=== PATIENT | male | born 1950 | race Caucasian/White ===

== ENCOUNTER 2016-11-24 23:59 | Inpatient (IN) | payer BC, MEDICARE ==
--- NOTE | ~2016-11-24 | CT16 ---
[facility] A Service of [facility] & [facility] RADIOLOGY TEXT RESULTS PATIENT: SUDHAKAR MENDEZ LOCATION: C2A 241- : 49 UNIT #: [id number] AGE: [address]: Sarah Zambrano MD SEX: M ORDER DR: [id number] [facility] [address] [facility]. [place], [place] [address] [id number] I MR#: [id number] Acc #: [id number] NAME: SUDHAKAR MENDEZ : 1950 SEX: M STUDY DATE/TIME: 11/25/2016 16:11 UNIT: C2 ROOM: 241 STUDY DESCRIPTION: CT Angio Chest for PE Attending Physician: Sarah Zambrano M.D. Ordering Physician: Juan Mccullough M.D. Primary Care Physician: Safia Covarrubias M.D. MEDICAL IMAGING REPORT This report is preliminary unless electronic signature is present EXAM CT angiogram chest with IV contrast HISTORY Cough and hemoptysis for 3 months. FINDINGS IV contrast-enhanced CT angiogram of the chest was performed with 3-D reconstructions. This CT exam was performed with one or more of the following radiation dose reduction techniques: Automatic exposure control, adjustment of mA and/or kV according to patient size, and iterative reconstruction. There are moderately extensive multifocal, partly calcified pleural plaques. Moderate subsegmental atelectasis in the inferior right middle lobe and posterior right lower lobe, and mild bronchiectasis in the right lower lobe. Calcified pleural plaques extend over the posterior hemidiaphragms bilaterally. 1.1 cm x 1.4 cm oval nodular density in the anteromedial left upper lobe, with adjacent linear stranding, could be secondary to focal fibrotic scarring. Comparison to older chest CTs, if available, is recommended. No prior chest CTs are available at this time. If no prior studies are available, either short-term followup CT chest in [address] should be considered for further evaluation. Normal caliber thoracic aorta. No evidence of pulmonary embolus. No adenopathy. Images of the upper abdomen demonstrate morphologic changes of cirrhosis with generalized hepatic atrophy and nodular hepatic contour, and splenomegaly measuring at least 17 cm in AP dimension. Moderate upper abdominal ascites. IMPRESSION 1. No pulmonary embolus. 2. Extensive calcified pleural plaques bilaterally. [facility]. [facility] A Service of [facility] RADIOLOGY TEXT RESULTS PATIENT: SUDHAKAR MENDEZ LOCATION: [facility] 241-01 : 49 UNIT #: [id number] AGE: [address]: Sarah Zambrano MD SEX: M ORDER DR: 3. There is an oval indeterminate nodule in the anteromedial left upper lobe measuring 1.1 cm x 1.4 cm. Comparison to prior chest CTs, if available, is recommended. Otherwise, followup chest CT in 3 months or further characterization with PET CT is recommended. 4. Moderately dense atelectasis in the right middle lobe inferiorly and in the posterior right lower lobe. 5. Images of the upper abdomen demonstrate cirrhosis with portal venous hypertension, splenomegaly and moderate upper abdominal ascites. Dictated by... Adeel Good M.D. THIS IS AN ELECTRONICALLY VERIFIED REPORT Adeel Good M.D. at 11/25/2016 11:36 PM DFL/nomi TD: 11/25/2016 22:05 JOB #: [id number] MEDICAL IMAGING REPORT Page 1 of 1 COPY
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
--- NOTE | ~2016-11-24 | DS ---
Unit #: [id number] #: [id number] Patient: SUDHAKAR LY [id number] [address] [place], [place] [address] [id number] I MR#: [id number] NAME: SUDHAKAR LY ROOM: 241 Age: 66 Sex: M Admission Date: 11/25/2016 : 1950 Discharge Date: 11/26/2016 Attending Physician: Sarah Zambrano M.D. Primary Care Physician: Safia Covarrubias M.D. DISCHARGE SUMMARY FINAL DIAGNOSES 1. Pneumonia. 2. Hemoptysis. 3. Ascites. 4. Cirrhosis. 5. Hepatitis C. 6. Alcohol abuse. DISCHARGE MEDICATIONS Levaquin 750 mg p.o. daily for 7 days., spironolactone 50 mg daily, Lasix 20 mg daily, Xanax 0.5 mg at bedtime. CONSULTATION DURING HOSPITALIZATION 1. Dr. Mccullough from Pulmonary Services. 2. Dr. Hand from [facility]. HOSPITAL COURSE Mr. Basil Ly is a 66-year-old male, who was admitted to the hospital with chest tightness, cough, and hemoptysis. The patient was diagnosed with community-acquired pneumonia. Dr. Mccullough was consulted. The patient was started on IV Levaquin. He is doing very well. CT scan of the chest was done, which does show extensive calcified pleural plaque bilaterally and oval nodule in the left upper lobe 1.1 cm x 1.4 cm. The patient will need a repeat CT scan done in 8 to 10 weeks or so. Characterization with PET-CT might be needed. The patient also has cirrhosis, hepatitis C, and portal venous hypertension. Dr. Hand was consulted. The patient has been started on Lasix and spironolactone. The patient will need to follow up with Dr. Hand to complete the workup for chronic liver disease. DISCHARGE INSTRUCTIONS 1. Discharge the patient to home in stable condition. 2. Medications as per med rec. 3. Follow up Dr. Mccullough's nurse practitioner in 2 to [address] scan of the chest to be done in 8 to 10 weeks. 5. Follow up primary care provider in [address] week[address] Follow up [address] Hand in 1 to 2 weeks at near clinic. 7. Prescription has been written. 8. Plan of care has been discussed with the patient. Dictated by... Unit #: [id number] #: [id number] Patient: SUDHAKAR LY M.D. KN/modl TD: 11/27/2016 02:10 JOB #: [id number] DISCHARGE SUMMARY Page 1 of 1 X Sarah Zambrano MD X DISCHARGE SUMMARY
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
--- NOTE | ~2016-11-24 | CR63 ---
[facility] A Service of [facility] & [facility] RADIOLOGY TEXT RESULTS PATIENT: SUDHAKAR MENDEZ LOCATION: C2A 241-01 : [birth year] UNIT #: [id number] AGE: [address]: Sarah Zambrano MD SEX: M ORDER DR: [id number] [facility] [address] [facility]. [place], [place] [address] [id number] I MR#: [id number] Acc #: [id number] NAME: SUDHAKAR MENDEZ : 1950 SEX: M STUDY DATE/TIME: 11/25/2016 0:37 UNIT: C2 ROOM: 241 STUDY DESCRIPTION: CR Chest 2 View Attending Physician: Sarah Zambrano M.D. Ordering Physician: Davion Ramírez M.D. Primary Care Physician: Safia Covarrubias M.D. MEDICAL IMAGING REPORT This report is preliminary unless electronic signature is present EXAM Two-view chest 11/25/2016 INDICATIONS 66-year-old male with cough, congestion for two weeks. TECHNIQUE Two-view chest compared with 10/13/2016. FINDINGS Lung volumes are low. Cardiac silhouette is within normal limits for technique. Vascularity unremarkable. Left lung appears clear. There is increasing opacity in the right lung base suspicious for pneumonia or at least dense atelectasis. No pneumothorax. No distinct effusion. IMPRESSION 1. Worsening atelectasis or pneumonia in the right lung base. No pneumothorax or significant effusion. 2. Chronic-appearing volume loss on the right and old healed granulomatous disease. Dictated by... Mk Luciano M.D. THIS IS AN ELECTRONICALLY VERIFIED REPORT Mk Luciano M.D. at 11/25/2016 9:57 PM Adrien TD: 11/25/2016 09:52 JOB #: [id number] MEDICAL IMAGING REPORT Page 1 of 1 COPY
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
--- NOTE | ~2016-11-24 | EKG ---
PATIENT: SUDHAKAR MENDEZ UNIT #: [id number] Ventricular Rate: 90 BPM Atrial Rate: 90 BPM P-R Interval: 152 ms QRS Duration: 84 ms Q-T Interval: 362 ms QTC Calculation(Bezet): 442 ms P [place]: 39 degrees Calculated R [place]: 7 degrees Calculated T [place]: 19 degrees Diagnosis Line: Normal sinus rhythm Diagnosis Line: Normal ECG Diagnosis Line: No previous ECGs available Diagnosis Line: Confirmed by HERLINDA PLEITEZ MD ([id number]) on 11/26/2016 Diagnosis Line: 9:11:58 PM INTERPRETING MD: MAIK MURPHY
[~2016-11-24 23:59] MED LIST: ALPRAZOLAM PO
[2016-11-25 00:48] LABS: POC - CKMB 1.1 ng/mL (0.0-7.9); POC - TROPONIN <0.05 ng/mL (<=0.05)
[2016-11-25 00:52] LABS: BASOPHIL% 0.7 % (0-2.5); EOSINOPHIL# 0.1 X10e3 (0-0.7); EOSINOPHIL% 1.6 % (0.0-7.0); HEMATOCRIT 41.8 % (38.0-50.0); LYMPHOCYTE# 0.6 X10e3 (1.0-3.5); LYMPHOCYTE% 18.9 % (17.0-45.0); MEAN CELL VOLUME 93.4 FL (83-96); MEAN CORPUSCULAR HEMOGLOBIN 31.3 PG (28-34); MEAN CORPUSCULAR HGB CONC 33.5 g/dL (30-36); MEAN PLATELET VOLUME 9.7 FL (6.5-11.5); MONOCYTE# 0.3 X10e3 (0-1.0); MONOCYTE% 9.4 % (3.0-12.0); NEUTROPHIL# 2.4 X10e3 (1.5-7.1); NEUTROPHIL% 69.4 % (40-75); PLATELET COUNT 58 X10e3 (140-420); RED BLOOD COUNT 4.47 X10e (3.90-5.60); RED CELL DISTRIBUTION WIDTH 15.7 % (11.0-15.5); WHITE BLOOD COUNT 3.4 X10e3 (4.0-10.5)
[2016-11-25 01:16] LABS: BILIRUBIN, DIRECT 1.4 mg/dL (0.0-0.2); BILIRUBIN,INDIRECT 2.8 mg/dL (0.0-0.9); BILIRUBIN,TOTAL 4.2 mg/dL (0.2-2.0); BUN/CREATININE RATIO 7.5; CALCIUM SERUM 8.5 mg/dL (8.4-10.2); CREATININE SERUM 0.8 mg/dL (0.6-1.4); GLOM FILT RATE Estimated 92.5 mL/min (>60)
[2016-11-25 01:31] LABS: DIFF IND YES
[2016-11-25 01:46] LABS: ANISOCYTOSIS SL; PLATELET ESTIMATE DECREASED (NORMAL)
[2016-11-25 02:27] LABS: POC - CKMB <1.0 ng/mL (0.0-7.9); POC - TROPONIN <0.05 ng/mL (<=0.05)
[2016-11-26 06:33] LABS: ALBUMIN SERUM 2.5 g/dL (3.5-5.0); BUN/CREATININE RATIO 6.25; CALCIUM SERUM 8.1 mg/dL (8.4-10.2); CREATININE SERUM 0.8 mg/dL (0.6-1.4); GLOM FILT RATE Estimated 92.5 mL/min (>60); POTASSIUM 3.8 mmol/L (3.5-5.1)
[2016-11-26] MEDS ORDERED: APAP325 M2 PO (12:48)
[2016-11-26] MEDS ORDERED: LASIX20 MG PO (12:49)
[2016-11-26] MEDS ORDERED: SPIRONOLACTONE50 MG PO (12:50)
[2016-11-26] MEDS ORDERED: LEVAQUIN750 MG PO (12:50)
== END 2016-11-26 14:02 | disposition home or self-care (01) | DRG 194 ==
LOC: CED 23:59 → CEDOF 11-25 03:30 → C2A 11-25 05:00
PROVIDERS: Emergency Medicine; Physician Assistant Medical
PROC: B32TYZZ Computerized Tomography (CT Scan) of Left Pulmonary Artery using Other Contrast (ICD-10-PCS; principal; 2016-11-25)
PROC: B32SYZZ Computerized Tomography (CT Scan) of Right Pulmonary Artery using Other Contrast (ICD-10-PCS; 2016-11-25)
DX: J18.9 Pneumonia, unspecified organism (principal); R04.2 Hemoptysis; K76.6 Portal hypertension; K70.31 Alcoholic cirrhosis of liver with ascites; F10.10 Alcohol abuse, uncomplicated; Z86.19 Personal history of other infectious and parasitic diseases; R91.1 Solitary pulmonary nodule; Z80.9 Family history of malignant neoplasm, unspecified
CPT/HCPCS: 36415; 71020; 71275; 74177; 80048; 80053; 80076; 82105; 82140; 82308; 82378; 82553; 83880; 84484; 85025; 86301; 87040; 87070; 87205; 87521; 93005; 94640; 99285; J1956; Q9967